=== PATIENT | female | born 1995 | race Caucasian/White ===

== ENCOUNTER 2020-04-12 15:10 | Observation (INO) | payer OTHER ==
[~2020-04-12] VITALS: Ht 165.1 cm; Wt 105.2 kg
== END 2020-04-12 16:20 | disposition home or self-care (01) ==
LOC: SPU 15:10
PROVIDERS: ADMIT Obstetrics & Gynecology; ATTEND Obstetrics & Gynecology
DX: O36.8120 Decreased fetal movements, second trimester, not applicable or unspecified (principal); Z3A.24 24 weeks gestation of pregnancy
CPT/HCPCS: G0378

== ENCOUNTER 2020-07-03 16:17 | Observation (INO) | payer OTHER ==
[~2020-07-03] VITALS: Ht 167.6 cm; Wt 114.3 kg
== END 2020-07-03 20:40 | disposition home or self-care (01) ==
LOC: SPU 16:17
PROVIDERS: ADMIT Obstetrics & Gynecology; ATTEND Obstetrics & Gynecology
DX: O62.9 Abnormality of forces of labor, unspecified (principal); Z3A.36 36 weeks gestation of pregnancy
CPT/HCPCS: G0378

== ENCOUNTER 2020-07-20 12:05 | Inpatient (IN) | payer OTHER, SELFPAY ==
[~2020-07-20] VITALS: Ht 167.6 cm; Wt 117.9 kg
[2020-07-20] MEDS ORDERED: NACL 0.9% 1,000 ML IV SCH (12:45)
[2020-07-20] MEDS ORDERED: CEFAZOLIN 2 GM IVPB PREMIX 50 ML IV ONE (12:45)
[2020-07-20 12:58] LABS: BILIRUBIN,URINE NEGATIVE (NEGATIVE); BLOOD, URINE 3+ (NEGATIVE); CLARITY/URINE CLEAR (CLEAR); COLOR,URINE YELLOW (YELLOW); GLUCOSE,URINE NEGATIVE (NEGATIVE); KETONES,URINE NEGATIVE (NEGATIVE); LEUKOCYTE ESTERASE ,URINE 3+ (NEGATIVE); NITRITE, URINE NEGATIVE (NEGATIVE); PH,URINE 6.5 (5.0-8.0); PROTEIN URINE 1+ (NEGATIVE); UROBILINOGEN,URINE 0.2 (0.2-1.0)
[2020-07-20 13:15] LABS: BASOPHILS % (AUTO) 0.6 % (0.0-2.0); EOSINOPHILS # (AUTO) 0.1 K/uL (0.0-0.4); EOSINOPHILS % (AUTO) 0.9 % (0.0-4.0); HEMATOCRIT 37.6 % (36-48); HEMOGLOBIN 12.8 g/dL (12.0-16.0); LYMPHOCYTES # (AUTO) 2.2 K/uL (1.0-5.5); LYMPHOCYTES % (AUTO) 26.4 % (20.5-51.5); MEAN CORPUSCULAR HEMOGLOBIN 30 pg (27-31); MEAN CORPUSCULAR HGB CONC 34 % (32-36); MEAN CORPUSCULAR VOLUME 89 fL (79.0-98.0); MONOCYTES # (AUTO) 0.5 K/uL (0.0-1.0); MONOCYTES % (AUTO) 5.7 % (1.7-9.3); NEUTROPHILS # (AUTO) 5.6 K/uL (1.8-7.7); NEUTROPHILS % (AUTO) 66.4 % (40.0-70.0); PLATELET COUNT (AUTO) 249 K/uL (130-430); RED BLOOD CELL COUNT(AUTO) 4.22 MIL/uL (4.2-6.2); RED CELL DISTRIBUTION WIDTH 14.9 % (9.0-15.0); WHITE BLOOD COUNT (AUTO) 8.4 K/uL (4.8-10.8)
[2020-07-20] MEDS ORDERED: AMPICILLIN SODIUM 2 GM in NS 100 ML IV ONE (13:15)
[2020-07-20] MEDS ORDERED: fentaNYL CITRATE/PF 100 MCG/2 ML AMP IVP ONE (13:15)
[2020-07-20 13:25] LABS: BACTERIA,URINE FEW /HPF (None Seen)
[2020-07-20 13:26] LABS: WBC,URINE 20-50 /HPF (0-3)
[2020-07-20] MEDS ORDERED: NS IRRIG SOLN 1000 ML IR ONE (15:42)
[2020-07-20] MEDS ORDERED: BUPIVACAINE /DEX PF 0.75% SPINAL 2 ML AMP INJ ONE (15:42)
[2020-07-20] MEDS ORDERED: METHYLERGONOVINE MALEATE 0.2 MG/ML AMP IM ONE (15:42)
[2020-07-20] MEDS ORDERED: ONDANSETRON HCL 4 MG/2 ML VIAL IVP ONE (15:42)
[2020-07-20] MEDS ORDERED: MORPHINE SULFATE 10MG/10ML PF AMP EP ONE (15:42)
[2020-07-20] MEDS ORDERED: LR 1,000 ML IV.SOLN IV ONE (15:42)
[2020-07-20] MEDS ORDERED: OXYTOCIN/0.9 % SODIUM CHLORIDE 1,000 ML IV ONE (15:45)
[2020-07-20] MEDS ORDERED: METHYLERGONOVINE MALEATE 0.2 MG/ML AMP ONE ×2 (15:45→15:46)
[2020-07-20] MEDS ORDERED: RHO(D) IMMUNE GLOBULIN/MALTOSE 1500 UNITS/1.3 ML (WINHRO) IM PRN (15:45)
[2020-07-20] MEDS ORDERED: TEMAZEPAM 15 MG CAPSULE PO PRN (15:45)
[2020-07-20] MEDS ORDERED: HYDROcodone/ACETAMIN 5-325 MG TAB (NORCO/ VICODIN) PO PRN (15:45)
[2020-07-20] MEDS ORDERED: LANOLIN 7 GM OINT. TP PRN (15:45)
[2020-07-20] MEDS ORDERED: MEASLES,MUMPS&RUBELLA VACC/PF 12500 UNIT/0.5 ML VIAL SUBQ PRN (15:45)
[2020-07-20] MEDS ORDERED: ANUSOL 1 EA SUPP.RECT (PREPARATION H) RC PRN (15:45)
[2020-07-20] MEDS ORDERED: BISACODYL 10 MG/SUPPOSITORY RC PRN (15:45)
[2020-07-20] MEDS ORDERED: LR 1,000 ML IV SCH (15:45)
[2020-07-20] MEDS ORDERED: NALOXONE HCL 0.4 MG/ML AMP (NARCAN) IVP PRN ×3 (15:45→16:45)
[2020-07-20] MEDS ORDERED: ACETAMINOPHEN 325 MG TABLET PO PRN (15:45)
[2020-07-20] MEDS ORDERED: ONDANSETRON HCL 4 MG/2 ML VIAL IVP PRN (16:45)
[2020-07-20] MEDS ORDERED: DIPHENHYDRAMINE INJ 50 MG/ML VIAL IVP PRN (16:45)
[2020-07-20] MEDS ORDERED: KETOROLAC TROMETHAMINE 60 MG/2 ML VIAL IM PRN (16:45)
[2020-07-20 18:47] VITALS: BP_SYST 137
[2020-07-20] MEDS: DOCUSATE SODIUM 100 MG CAPSULE PO SCH (21:00)
[2020-07-20] MEDS: SENNOSIDES/DOCUSATE SODIUM 1 TAB TABLET(SENOKOT-S) PO SCH (21:00)
[2020-07-21 07:00] LABS: BASOPHILS % (AUTO) 0.5 % (0.0-2.0); EOSINOPHILS % (AUTO) 0.4 % (0.0-4.0); HEMATOCRIT 28.1 % (36-48); HEMOGLOBIN 9.4 g/dL (12.0-16.0); LYMPHOCYTES # (AUTO) 1.8 K/uL (1.0-5.5); LYMPHOCYTES % (AUTO) 24.4 % (20.5-51.5); MEAN CORPUSCULAR HEMOGLOBIN 30 pg (27-31); MEAN CORPUSCULAR HGB CONC 34 % (32-36); MEAN CORPUSCULAR VOLUME 90 fL (79.0-98.0); MONOCYTES # (AUTO) 0.5 K/uL (0.0-1.0); MONOCYTES % (AUTO) 7.3 % (1.7-9.3); NEUTROPHILS % (AUTO) 67.4 % (40.0-70.0); PLATELET COUNT (AUTO) 186 K/uL (130-430); RED BLOOD CELL COUNT(AUTO) 3.11 MIL/uL (4.2-6.2); RED CELL DISTRIBUTION WIDTH 14.6 % (9.0-15.0); WHITE BLOOD COUNT (AUTO) 7.4 K/uL (4.8-10.8)
[2020-07-21] MEDS: DOCUSATE SODIUM 100 MG CAPSULE PO SCH ×2 (09:01→21:42)
[2020-07-21] MEDS: SIMETHICONE 80 MG TAB.CHEW PO PRN ×2 (12:07→17:31)
[2020-07-21] MEDS: IBUPROFEN 600 MG TABLET PO SCH ×3 (12:08→23:32)
[2020-07-21] MEDS ORDERED: NALOXONE HCL 0.4 MG/ML AMP (NARCAN) IVP PRN (16:45)
[2020-07-21] MEDS: FERROUS SULFATE 325 MG TABLET.DR PO SCH (21:42)
[2020-07-21] MEDS: SENNOSIDES/DOCUSATE SODIUM 1 TAB TABLET(SENOKOT-S) PO SCH (21:42)
[2020-07-22] MEDS: IBUPROFEN 600 MG TABLET PO SCH ×4 (06:00→23:11)
[2020-07-22] MEDS: HYDROcodone/ACETAMIN 5-325 MG TAB (NORCO/ VICODIN) PO PRN ×2 (06:13→13:24)
[2020-07-22] MEDS: SIMETHICONE 80 MG TAB.CHEW PO PRN ×2 (09:03→13:21)
[2020-07-22] MEDS: DOCUSATE SODIUM 100 MG CAPSULE PO SCH ×2 (09:03→20:38)
[2020-07-22] MEDS: FERROUS SULFATE 325 MG TABLET.DR PO SCH ×2 (09:03→20:38)
[2020-07-22] MEDS: SENNOSIDES/DOCUSATE SODIUM 1 TAB TABLET(SENOKOT-S) PO SCH (20:38)
[2020-07-23] MEDS: IBUPROFEN 600 MG TABLET PO SCH ×2 (06:00→12:15)
[2020-07-23] MEDS: FERROUS SULFATE 325 MG TABLET.DR PO SCH (12:14)
[2020-07-23] MEDS: SIMETHICONE 80 MG TAB.CHEW PO PRN (12:14)
[2020-07-23] MEDS ORDERED: DIPH-TET-PERTUS Vaccine 0.5 ML VIAL (ADACEL) I.M. ONE (15:15)
== END 2020-07-23 16:50 | disposition home or self-care (01) | DRG 786 ==
LOC: OBSVTOIN 12:05 → SPU 12:05
PROVIDERS: ADMIT Obstetrics & Gynecology; ATTEND Obstetrics & Gynecology
PROC: 10D00Z1 Extraction of Products of Conception, Low, Open Approach (ICD-10-PCS; principal; 2020-07-20 15:30)
DX: O36.63X0 Maternal care for excessive fetal growth, third trimester, not applicable or unspecified (principal); O24.32 Unspecified pre-existing diabetes mellitus in childbirth; O99.214 Obesity complicating childbirth; O99.824 Streptococcus B carrier state complicating childbirth; E11.9 Type 2 diabetes mellitus without complications; Z20.822 Contact with and (suspected) exposure to COVID-19; E66.01 Morbid (severe) obesity due to excess calories; Z3A.38 38 weeks gestation of pregnancy; Z37.0 Single live birth
CPT/HCPCS: 36415; 81000; 82947; 85025; 86592; 86886; 86900; 86901; 90715; J0290; J0690; J1885; J2210; J2274; J2405; J2590; J3490; J7120

== ENCOUNTER 2020-07-21 10:00 | Outpatient (CLI) | payer OTHER, SELFPAY | END 2020-07-21 11:00 | disposition home or self-care (01) | LOC: SLB 10:00 → EDSTATUS 07-22 07:30 | PROVIDERS: ATTEND Obstetrics & Gynecology | DX: Z34.90 Encounter for supervision of normal pregnancy, unspecified, unspecified trimester (principal); Z20.822 Contact with and (suspected) exposure to COVID-19; Z3A.38 38 weeks gestation of pregnancy | CPT/HCPCS: U0003 ==